=== PATIENT | female | born 1935 | race Caucasian/White ===

== ENCOUNTER 2021-01-06 23:47 | Inpatient (IN) ==
[2021-01-06] MEDS ORDERED: IOPAMIDOL 100 ML BOTTLE IV ONE (23:48)
[2021-01-07 01:46] LABS: ABG Methemoglobin 0.3 % (0.4-1.5); Total Hemoglobin 12.1 gm/Dl (13.5-16.5); VBG Base Excess 2 (-2-3); VBG HCO3 27.6 mmol/L; VBG Oxygen Saturation 76.6 %; VBG PCO2 46.7 mmHg; VBG PH 7.39 U; VBG PO2 46.1 mmHg; VBG Total CO2 29.1 mmol/L
[2021-01-07 01:49] LABS: Basophils # (Auto) 0.03 K/mcL (0.00-0.20); Basophils % (Auto) 0.3 % (0.0-2.0); Eosinophils # (Auto) 0.04 K/mcL (0.00-0.70); Eosinophils % (Auto) 0.4 % (0.0-7.0); Hemoglobin 12.1 g/dL (12.0-15.0); Lymphocytes % (Auto) 12.7 % (15.0-49.0); Mean Cell Volume 93.4 fL (80.0-100.0); Mean Corpuscular HGB Conc 32.7 g/dL (31.0-36.0); Mean Platelet Volume 9.7 fL (7.4-10.4); Monocytes # (Auto) 0.88 K/mcL (0.10-0.90); Monocytes % (Auto) 8.6 % (1.0-12.0); Platelet Count 221 K/mcL (140-440); RBC 3.96 M/mcL (4.00-5.20); Red Cell Distribution Width 13.1 % (11.5-14.5); WBC 10.3 K/mcL (4.5-11.0)
[2021-01-07 01:52] LABS: POC Blood Urea Nitrogen 18 mg/dL (6-20); POC CO2 27 mmol/L (22-30); POC Calcium, Ionized 1.01 mmEq/L (1.16-1.32); POC Chloride 98 mEq/L (96-108); POC Creatinine 1.1 mg/dL (0.6-1.2); POC Glucose, Random 204 mg/dL (70-105); POC Hematocrit 37 % (36-48); POC Potassium 3.7 mEql/L (3.3-5.1); POC Sodium 137 mEq/L (133-145)
[2021-01-07] MEDS ORDERED: IPRATROPIUM/ALBUTEROL 3 ML AMPUL.NEB NEB ONE (01:59)
[2021-01-07] MEDS ORDERED: cefTRIAXone 1 GM VIAL IV ONE (02:05)
[2021-01-07] MEDS ORDERED: AZITHROMYCIN 250 MG TABLET PO ONE (02:05)
[2021-01-07] MEDS ORDERED: ACETAMINOPHEN 325 MG TABLET PO ONE (02:05)
[2021-01-07 02:10] LABS: proBNP 171.5 pg/mL (<450.0)
--- NOTE | 2021-01-07 02:10 | Emergency Department Note ---
SOB HPI General Chief Complaint: Shortness of Breath/Dyspnea Stated Complaint: SOB Time Seen by Provider: 01/07/21 00:22 Source: patient, family and EMS Mode of arrival: EMS Limitations: no limitations History of Present Illness HPI Narrative: Narrative: Patient presents to the emergency department with complaints of shortness of breath, cough, fevers. Patient reports her cough is productive. Patient reports symptoms of cough and shortness of breath for the last 5 months, she had Covid at that time. Patient has been following with her primary care provider, she is working on getting oxygen at home. Patient's fever has been as high as 101. Patient was febrile on presentation to the emergency department. Patient is not a smoker. No personal history of pulmonary embolisms, patient does take Lasix. Patient currently denies any chest pain. Patient has not been on any antibiotics for the last month. Related Data Home Medications Medication Instructions Recorded Confirmed linagliptin 5 mg tablet 5 mg PO QAM 05/20/18 01/07/21 furosemide 20 mg tablet 20 mg PO QAM 03/01/20 01/07/21 levothyroxine 50 mcg capsule 50 mcg PO QDAY 03/01/20 01/07/21 pregabalin 150 mg capsule 150 mg PO BID 03/01/20 01/07/21 sertraline 50 mg tablet 200 mg PO DAILY tab 03/01/20 01/07/21 atorvastatin 40 mg PO QHS 01/07/21 01/07/21 glipizide 10 mg PO BID 01/07/21 01/07/21 Previous Rx's Medication Instructions Recorded nebulizers #1 each 04/20/16 albuterol sulfate 90 mcg/actuation 2 puff INHALATION Q6H PRN #8.5 g 06/03/18 aerosol inhaler mupirocin 1 applic TOPICAL BID #15 g 05/02/20 losartan 25 mg tablet 25 mg PO QDAY #90 tab 07/19/20 estradiol 0.5 mg tablet 0.25 mg PO .COMPLEX #12 tab 10/11/20 famotidine 20 mg tablet 20 mg PO QDAY #90 tab 10/26/20 oxybutynin chloride 5 mg tablet 5 mg PO BID #60 tab 12/28/20 Allergies Allergy/AdvReac Type Severity Reaction Status Date / Time Penicillins Allergy Severe Other Verified 01/07/21 00:00 Sulfa (Sulfonamide Allergy Mild Rash Verified 01/07/21 00:00 Antibiotics) hay Fever Allergy Unknown Unknown Uncoded 08/25/19 10:43 Review of Systems ROS ROS Narrative: Narrative: PFSH Narrative Patient History Narrative: Narrative: Medical/Surgical/Family History All Active Problems (Updated 01/07/21 @ 03:59 by Joseph Russo MD) Dyspnea (Acute) Acute bronchitis (Acute) Urinary frequency (Acute) Urinary incontinence (Acute) Sore on leg (Acute) Pneumonia (Acute) Acute respiratory failure with hypoxia (Acute) Acute bronchitis (Acute) Acute bronchitis (Acute) Skin yeast infection (Acute) CKD (chronic kidney disease), stage III (Chronic) Bronchitis (Acute) Adnexal mass (Acute) Retained tampon (Acute) Eruptive skin inflammation (Acute) Edema (Chronic) Hypertensive renal disease (Chronic) CKD (chronic kidney disease), stage III (Chronic) History of plastic surgery (Chronic) History of hysterectomy (Chronic) History of breast surgery (Chronic) Breast lump (Chronic) Depression (Chronic) Hemorrhoids (Chronic) Abdominal hernia (Chronic) Hyperlipidemia (Chronic) Measles (Chronic) Migraine (Chronic) Pneumonia (Chronic) Rectal bleeding (Chronic) Renal disease (Chronic) Thyroid disorder (Chronic) Varicose veins (Chronic) Arthritis (Chronic) Anemia (Chronic) Leg cramps (Chronic) Medical History (Updated 01/07/21 @ 03:59 by Joseph Russo MD) Abdominal hernia Acute bronchitis Anemia Arthritis Arthropod bite of abdominal wall Somewhat liner distribution w/o pus or signs of infection. 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 She is at low risk for progression of her renal disease as long as she avoids nonsteroidals Depression Edema Hemorrhoids Hyperlipidemia Hypertensive renal disease [place] urinalysis and absence of any nephrotoxic medications Leg cramps Measles Migraine Pneumonia Rectal bleeding Renal disease Thyroid disorder Varicose veins Surgical History History of breast surgery 2 lumps removed on breast History of hysterectomy History of plastic surgery brow lift Family History Unknown Family history of malignant neoplasm Family history of arthritis Cardiac disease Essential hypertension Kidney disorder Essential hypertension Parkinson's Disease Pulmonary tuberculosis Social History Smoking Status: Never smoker Alcohol Intake Frequency: does not drink Substance Use: does not use Exam Narrative Narrative: Narrative: General Limitations: no limitations General appearance: Present alert, in no apparent distress and nontoxic Head Head: Present atraumatic, normocephalic and normal inspection ENT ENT: Present normal exam Neck Neck: Present normal inspection Chest Chest: Present normal inspection Respiratory Respiratory: Present rales/crackles, wheezes and decreased breath sounds; Absent respiratory distress and stridor Cardiovascular Cardiovascular: Present regular rate, normal rhythm and normal heart sounds Adbominal Abdominal: Present soft and normal bowel sounds Extremities Extremities: Present normal inspection and full ROM Neurological Neurological: Present alert and oriented X3 Psychiatric Psychiatric: Present normal affect Skin Skin: Present warm (WNL) and dry; Absent rash Course Vital Signs Vital signs: Vital Signs Temperature 101.2 F H 01/06/21 23:47 Pulse Rate 82 01/06/21 23:47 Respiratory Rate 22 01/06/21 23:47 Blood Pressure 157/87 01/06/21 23:47 Pulse Oximetry (%) 90 01/06/21 23:47 Temperature 97.8 F 01/07/21 04:16 Pulse Rate 64 01/07/21 04:16 Respiratory Rate 20 01/07/21 02:15 Blood Pressure 108/73 01/07/21 04:46 Pulse Oximetry (%) 97 01/07/21 04:16 [facility] MDM Narrative Medical decision making narrative: Narrative: Patient presents to the emergency department with complaints of cough, fever, shortness of breath. Patient upon arrival was placed on 2 L nasal cannula for hypoxia, patient's temperature was 101.2. Patient has crackles mostly on the right and some scattered wheezes. Patient has been dealing with multiple bouts of pneumonia pulmonary issues for the last 5 months her son states since being diagnosed with Covid at that time. They have been working on arranging home oxygen. Chest x-ray was concerning for right infiltrates not seen on prior x-ray. CT scan was also obtained given patient's elevated D-dimer and persistent respiratory symptoms. CT scan showed no pulmonary embolism or mass. Did show atypical pneumonitis concerning for infectious process of the right middle lobe. patient was trialed off of oxygen and was saturating 85 to 90%. Patient was given ceftriaxone and azithromycin and nebulizer and Tylenol. Patient will be admitted for hypoxia and pneumonia. Lab Data Result diagrams: 01/07/21 01:31 Labs: Lab Results 01/07/21 01/07/21 01/07/21 Range/Units 01:31 01:31 01:31 WBC 10.3 (4.5-11.0) K/mcL RBC 3.96 L (4.00-5.20) M/mcL Hgb 12.1 (12.0-15.0) g/dL Hct 37.0 (36.0-48.0) % POC Hct (36-48) % MCV 93.4 (80.0-100.0) fL MCH 30.6 (26.0-34.0) pg MCHC 32.7 (31.0-36.0) g/dL RDW 13.1 (11.5-14.5) % Plt Count 221 (140-440) K/mcL MPV 9.7 (7.4-10.4) fL Neut % (Auto) 78.0 (38.0-78.0) % Lymph % (Auto) 12.7 L (15.0-49.0) % [place]ard % (Auto) 8.6 (1.0-12.0) % Eos % (Auto) 0.4 (0.0-7.0) % Baso % (Auto) 0.3 (0.0-2.0) % Lymph # (Auto) 1.30 L (1.50-4.80) K/mcL [place] # (Auto) 0.88 (0.10-0.90) K/mcL Eos # (Auto) 0.04 (0.00-0.70) K/mcL Baso # (Auto) 0.03 (0.00-0.20) K/mcL Absolute Neutrophils 8.01 H (1.80-8.00) K/mcL D-Dimer 2.38 H (0.27-0.50) ug/mL ABG Methemoglobin (0.4-1.5) % VBG pH U VBG pCO2 mmHg VBG pO2 mmHg VBG HCO3 mmol/L VBG Total CO2 mmol/L VBG O2 Saturation % VBG Base Excess (-2-3) Carboxyhemoglobin (0.0-1.5) % THgb Total Hemoglobin (13.5-16.5) gm/Dl POC Sodium (133-145) mEq/L POC Potassium (3.3-5.1) mEql/L POC Chloride (96-108) mEq/L POC Total CO2 (22-30) mmol/L POC BUN (6-20) mg/dL POC Creatinine (0.6-1.2) mg/dL POC Glucose (70-105) mg/dL POC WB Ioniz Calcium (1.16-1.32) mmEq/L Troponin T < 0.01 (<0.03) ng/mL NT-Pro-B Natriuret Pep (<450.0) pg/mL Procalcitonin (<0.10) ng/mL 01/07/21 01/07/21 01/07/21 Range/Units 01:31 01:31 01:44 WBC (4.5-11.0) K/mcL RBC (4.00-5.20) M/mcL Hgb (12.0-15.0) g/dL Hct (36.0-48.0) % POC Hct 37 (36-48) % MCV (80.0-100.0) fL MCH (26.0-34.0) pg MCHC (31.0-36.0) g/dL RDW (11.5-14.5) % Plt Count (140-440) K/mcL MPV (7.4-10.4) fL Neut % (Auto) (38.0-78.0) % Lymph % (Auto) (15.0-49.0) % Menard % (Auto) (1.0-12.0) % Eos % (Auto) (0.0-7.0) % Baso % (Auto) (0.0-2.0) % Lymph # (Auto) (1.50-4.80) K/mcL [place] # (Auto) (0.10-0.90) K/mcL Eos # (Auto) (0.00-0.70) K/mcL Baso # (Auto) (0.00-0.20) K/mcL Absolute Neutrophils (1.80-8.00) K/mcL D-Dimer (0.27-0.50) ug/mL ABG Methemoglobin 0.3 L (0.4-1.5) % VBG pH 7.39 U VBG pCO2 46.7 mmHg VBG pO2 46.1 mmHg VBG HCO3 27.6 mmol/L VBG Total CO2 29.1 mmol/L VBG O2 Saturation 76.6 % VBG Base Excess 2 (-2-3) Carboxyhemoglobin 6.1 H (0.0-1.5) % THgb Total Hemoglobin 12.1 L (13.5-16.5) gm/Dl POC Sodium 137 (133-145) mEq/L POC Potassium 3.7 (3.3-5.1) mEql/L POC Chloride 98 (96-108) mEq/L POC Total CO2 27 (22-30) mmol/L POC BUN 18 (6-20) mg/dL POC Creatinine 1.1 (0.6-1.2) mg/dL POC Glucose 204 H (70-105) mg/dL POC WB Ioniz Calcium 1.01 L (1.16-1.32) mmEq/L Troponin T (<0.03) ng/mL NT-Pro-B Natriuret Pep 171.5 (<450.0) pg/mL Procalcitonin 0.20 H (<0.10) ng/mL ED POC Tests ED POC Tests: NIURKA - SARS Antigen Negative EKG Data EKG #1: EKG attestation: Yes I reviewed and interpreted this EKG. and Yes There are no EKG findings of acute coronary syndrome EKG results narrative: Significant artifact. Discharge Plan Patient/Caregiver Discharge Instructions Pt seen by DANCE ARTIST/PA only: No Clinical Impression: Acute respiratory failure with hypoxia Pneumonia Qualifiers: Pneumonia type: due to unspecified organism Laterality: right Lung location: middle lobe of lung Qualified Code(s): J18.9 - Pneumonia, unspecified organism Patient Disposition: Xfer As Inpt ([facility]) Discharge Date/Time: 01/07/21 04:57 Discharge Location: [facility]
--- NOTE | 2021-01-07 04:06 | XRay Report ---
CLINICAL INFORMATION: dyspnea COMPARISON: 09/28/2020 FINDINGS: The heart is moderately enlarged, but unchanged. Mild thoracic aortic ectasia is seen as before. The remaining mediastinum and pulmonary vessels are unremarkable. Mild bibasilar atelectasis appreciated. Malunified old proximal left humeral fracture is seen as before IMPRESSION: Moderate cardiomegaly-stable. No evidence of CHF Subsegmental right basilar atelectasis-new Interpreted and Authenticated by: Kevin Spring 01/07/21
[2021-01-07] MEDS ORDERED: ACETAMINOPHEN 325 MG TABLET PO PRN (04:09)
[2021-01-07] MEDS ORDERED: IPRATROPIUM/ALBUTEROL 3 ML AMPUL.NEB NEB PRN (04:09)
--- NOTE | 2021-01-07 06:05 | Cat Scan Report ---
CLINICAL INFORMATION: Cough and shortness of breath. Covid +5 months prior COMPARISON: Chest CT 10/07/2012. TECHNIQUE: 80ml of Isovue-370 were injected intravenously. Using SmartPrep to maximize pulmonary artery opacification, .625mm helical slices were obtained from the lung apices through the lung bases. Following reconstruction, 2.5 mm sagittal, coronal, and axial reformations were processed. The exam was reviewed at mediastinal, lung, and bone windows. The exam was performed using radiation dose optimization techniques including, but not limited to, automated exposure control, adjustment of the mA and/or kV according to patient size and use of iterative reconstruction technique. FINDINGS: Moderate mixed groundglass/alveolar infiltrate in the right upper lobe and moderate consolidated infiltrate in the right lower lobe are new from prior exam. Segmental atelectasis of the medial basilar segment left lower lobe and inferior lingula are also new. There are no effusions. Mediastinal windows show moderate cardiomegaly with scattered calcific plaque in the coronary arteries. The pulmonary arteries are normal diameter and well-opacified: no evidence of embolus. Thoracic aorta is normal diameter and demonstrates intimal thickening particularly the descending segments. Moderately enlarged lymph nodes have developed in the right hilum, subcarinal and lower right paratracheal region. This should represent benign reactive adenopathy related to pulmonary infection. Severe narrowing of the mid and lower trachea, commencing at the thoracic inlet, has developed since previous CT. There is also severe narrowing of the proximal right and left main stem bronchi. Moderate narrowing of the bronchus intermedius, right middle and both lower lobe bronchi appreciated. This is likely inflammatory. Bone windows show no significant osseous abnormality. Superior abdominal images show a cluster of small stones in the gallbladder neck. 10 mm simple cyst seen in the superior left kidney. Visualized spleen pancreas and liver are grossly normal. IMPRESSION: Moderate mixed alveolar groundglass in the right upper lobe and moderate consolidated alveolar infiltrate in the right lower lobe. Consider aspiration or infection. Adenopathy in the right hilum and inferior mediastinum are new from prior CT and almost certainly represent lytic benign reactive adenopathy related to infection. Complete atelectasis of the inferior lingular and medial basilar segments of the left lower lobe-new and likely related mucus plugging. Severe narrowing of the mid and distal trachea-commencing at the thoracic inlet. There is also severe narrowing of both right and left mainstem bronchi. Moderate narrowing of both lower lobe bronchi, bronchus intermedius and right middle lobe bronchi. This is almost certainly inflammatory. The degree of narrowing results in ventilatory compromise. Patient may require intubation if clinically indicated. Cholelithiasis. 10 mm simple cyst superior pole left kidney Interpreted and Authenticated by: Kevin Spring 01/07/21
[2021-01-07 08:31] LABS: ALT/SGPT 18 U/L (<40); AST/SGOT 32 U/L (<32); Albumin 3.6 gm/dL (3.2-5.2); Albumin/Globulin Ratio 1.1 (1.0-2.3); Alkaline Phosphatase 57 U/L (39-117); Bilirubin,Direct 0.3 mg/dL (<0.3); Blood Urea Nitrogen 17 mg/dL (8-23); Calcium 8.4 mg/dL (8.6-10.4); Carbon Dioxide 27 mmol/L (22-30); Chloride 98 mmol/L (96-108); Globulin 3.4 gm/dL (2.2-3.7); Glomerular Filtration Rate 52; Glucose 128 mg/dL (70-105); Lactate Dehydrogenase 207 U/L (135-225); Phosphorous 3.6 mg/dL (2.5-4.5); Triglycerides 76 mg/dL (<150); Uric Acid 3.6 mg/dL (2.5-8.0)
[2021-01-07 08:58] LABS: Band Neutrophils % 2 % (0-10); Eosinophils % (Manual) 3 % (0-7); Lymphocytes % 28 % (15-49); Monocytes % (Manual) 6 % (1-12); Platelet Estimate NORMAL (Normal); RBC Morphology NORMAL (Normal); Segmented Neutrophils % 61 % (38-78)
[2021-01-07] MEDS ORDERED: SENNOSIDES 1 TABLET PO PRN (10:37)
[2021-01-07] MEDS ORDERED: DEXTROSE 50% 50 ML VIAL IV PRN (10:37)
[2021-01-07] MEDS ORDERED: DEXTROSE 31 GM ORAL.SUSP PO PRN (10:37)
[2021-01-07] MEDS ORDERED: POTASSIUM CHLORIDE 20 MEQ TABLET PO PRN ×2 (10:37)
[2021-01-07] MEDS ORDERED: POTASSIUM CHLORIDE 40 MEQ in DEXTROSE 5% IN WATER 500 ML IV PRN (10:37)
[2021-01-07] MEDS ORDERED: POLYETHYLENE GLYCOL 3350 17 GM PACKET PO PRN (10:37)
[2021-01-07] MEDS ORDERED: MAGNESIUM SULFATE 2 GM/50 ML BAG IV PRN (10:37)
[2021-01-07] MEDS ORDERED: ONDANSETRON 4 MG/2 ML VIAL IV PRN (10:37)
--- NOTE | 2021-01-07 10:37 | Internal Med History&Physical ---
HPI History of Present Illness Patient information: Note initiated : 01/07/21 at 10:26 am Service Date, if different from initiated Date: [] Patient: Cathy Timmons a 85 y/o F admitted on 01/07/21 for Shortness of breath. Chief Complaint: [] History of present illness: Ms. Timmons is a 85 year old F Patient is poor historian states her daughter had her come in because of coughing shortness of breath and some nausea vomiting last night. She has been dealing with this since she got Covid 5 months ago. She complains of fevers. She has been working on getting oxygen at home but has not had it yet. She is a non-smoker but has been exposed to secondhand smoke for a long time. She is on inhalers and admits to COPD but I do not see that on her home problem list. CTA of the chest was concerning for aspiration or infection. Also found to have complete atelectasis of the inferior lingula middle medial basilar segment left lower lobe and likely mucous plugging. Patient does admit to increased cough with food and drink. He was febrile on admit. Review of Systems: Pertinent positives as above. Denies headache/chest or abdominal pain/diarrhea. Many 10 point review of system reviewed negative PFSH PFSH All Active Problems (Updated 01/07/21 @ 03:59 by Joseph Russo MD) Dyspnea (Acute) Acute bronchitis (Acute) Urinary frequency (Acute) Urinary incontinence (Acute) Sore on leg (Acute) Pneumonia (Acute) Acute respiratory failure with hypoxia (Acute) Acute bronchitis (Acute) Acute bronchitis (Acute) Skin yeast infection (Acute) CKD (chronic kidney disease), stage III (Chronic) Bronchitis (Acute) Adnexal mass (Acute) Retained tampon (Acute) Eruptive skin inflammation (Acute) Edema (Chronic) Hypertensive renal disease (Chronic) CKD (chronic kidney disease), stage III (Chronic) History of plastic surgery (Chronic) History of hysterectomy (Chronic) History of breast surgery (Chronic) Breast lump (Chronic) Depression (Chronic) Hemorrhoids (Chronic) Abdominal hernia (Chronic) Hyperlipidemia (Chronic) Measles (Chronic) Migraine (Chronic) Pneumonia (Chronic) Rectal bleeding (Chronic) Renal disease (Chronic) Thyroid disorder (Chronic) Varicose veins (Chronic) Arthritis (Chronic) Anemia (Chronic) Leg cramps (Chronic) Medical History (Updated 01/07/21 @ 03:59 by Joseph Russo MD) Abdominal hernia Acute bronchitis Anemia Arthritis Arthropod bite of abdominal wall Somewhat liner distribution w/o pus or signs of infection. Excoriated and purtitic Hx of MRSA but this is not a skin abscess +/- MRSA Breast lump CKD (chronic kidney disease), stage III This patient has stable chronic kidney disease level 3 with a bland urinalysis and no proteinuria in the setting of previous nonsteroidal anti- inflammatory medication use and hypertension. She is at low risk for progression of her renal disease as long as she avoids nonsteroidals Depression Edema Hemorrhoids Hyperlipidemia Hypertensive renal disease [place] urinalysis and absence of any nephrotoxic medications Leg cramps Measles Migraine Pneumonia Rectal bleeding Renal disease Thyroid disorder Varicose veins Surgical History History of breast surgery 2 lumps removed on breast History of hysterectomy History of plastic surgery brow lift Family History Unknown Family history of malignant neoplasm Family history of arthritis Cardiac disease Essential hypertension Kidney disorder Essential hypertension Parkinson's Disease Pulmonary tuberculosis Social History (Updated 08/25/19 @ 12:45 by Grover Mendoza MD) other: 7 children alcohol intake frequency: does not drink substance use type: does not use MEDS/ALLERGIES Home Medications and Allergies Home Medications Medication Instructions Recorded Confirmed Type nebulizers #1 each 04/20/16 01/07/21 Rx linagliptin 5 mg tablet 5 mg PO QAM 05/20/18 01/07/21 History albuterol sulfate 90 mcg/actuation 2 puff INHALATION Q6H PRN #8.5 g 06/03/18 01/07/21 Rx aerosol inhaler furosemide 20 mg tablet 20 mg PO QAM 03/01/20 01/07/21 History levothyroxine 50 mcg capsule 50 mcg PO QDAY 03/01/20 01/07/21 History pregabalin 150 mg capsule 150 mg PO BID 03/01/20 01/07/21 History sertraline 50 mg tablet 200 mg PO DAILY tab 03/01/20 01/07/21 History mupirocin 1 applic TOPICAL BID #15 g 05/02/20 01/07/21 Rx losartan 25 mg tablet 25 mg PO QDAY #90 tab 07/19/20 01/07/21 Rx estradiol 0.5 mg tablet 0.25 mg PO .COMPLEX #12 tab 10/11/20 01/07/21 Rx famotidine 20 mg tablet 20 mg PO QDAY #90 tab 10/26/20 01/07/21 Rx oxybutynin chloride 5 mg tablet 5 mg PO BID #60 tab 12/28/20 01/07/21 Rx atorvastatin 40 mg PO QHS 01/07/21 01/07/21 History glipizide 10 mg PO BID 01/07/21 01/07/21 History Allergies Allergy/AdvReac Type Severity Reaction Status Date / Time Penicillins Allergy Severe Other Verified 01/07/21 00:00 Sulfa (Sulfonamide Allergy Mild Rash Verified 01/07/21 00:00 Antibiotics) hay Fever Allergy Unknown Unknown Uncoded 08/25/19 10:43 EXAM Constitutional Vitals: Temp Pulse Resp BP Pulse Ox 97.3 F 61 20 116/71 93 01/07/21 07:33 01/07/21 07:33 01/07/21 07:33 01/07/21 07:33 01/07/21 07:33 Exam: General: Alert, Awake, No acute Distress, obese Eyes/N/T: EOMI, PERRL, Head/Neck: neck supple, normocephalic atraumatic CV: RRR, No murmurs, normal s1/s2 Pulm: Rhonchi/wheezing b/l, Abd: soft, nontender, +BS x4 Ext: no clubbing/cyanosis, trace b/l LE edema Neuro: Alert, no focal deficits, moves all extremities, CN 2-12 grossly intact, symmetrical strength b/l upper/lower, sensations intact b/l upper/lower Skin: warm/dry DATA Data Completed and Pending Labs: Labs from last 24 hours 01/07/21 01/07/21 01/07/21 07:28 07:28 07:28 WBC RBC Hgb Hct POC Hct MCV MCH MCHC RDW Plt Count MPV Neut % (Auto) Lymph % (Auto) [place] % (Auto) Eos % (Auto) Baso % (Auto) Lymph # (Auto) [place] # (Auto) Eos # (Auto) Baso # (Auto) Seg Neutrophils % Band Neutrophils % Lymphocytes % Monocytes % (Manual) Eosinophils % (Manual) Absolute Neutrophils Platelet Estimate RBC Morphology D-Dimer ABG Methemoglobin VBG pH VBG pCO2 VBG pO2 VBG HCO3 VBG Total CO2 VBG O2 Saturation VBG Base Excess Carboxyhemoglobin Total Hemoglobin POC Sodium Sodium 135 POC Potassium Potassium 3.6 POC Chloride Chloride 98 Carbon Dioxide 27 POC Total CO2 Anion Gap 10.0 POC BUN BUN 17 Creatinine 1.0 POC Creatinine GFR Calculation 52 Glucose 128 H POC Glucose Uric Acid 3.6 Calcium 8.4 L POC WB Ioniz Calcium Phosphorus 3.6 Magnesium 2.2 Total Bilirubin 1.0 Direct Bilirubin 0.3 H GGT 28 AST 32 H ALT 18 Alkaline Phosphatase 57 Lactate Dehydrogenase 207 Troponin T NT-Pro-B Natriuret Pep Total Protein 7.0 Albumin 3.6 Globulin 3.4 Albumin/Globulin Ratio 1.1 Triglycerides 76 Procalcitonin 0.23 H Mycoplasma pneumon IgG Pending Mycoplasma pneumon IgM Pending 01/07/21 01/07/21 01/07/21 07:28 01:44 01:31 WBC RBC Hgb Hct POC Hct MCV MCH MCHC RDW Plt Count MPV Neut % (Auto) Lymph % (Auto) [place] % (Auto) Eos % (Auto) Baso % (Auto) Lymph # (Auto) [place] # (Auto) Eos # (Auto) Baso # (Auto) Seg Neutrophils % 61 Band Neutrophils % 2 Lymphocytes % 28 Monocytes % (Manual) 6 Eosinophils % (Manual) 3 Absolute Neutrophils Platelet Estimate Normal RBC Morphology Normal D-Dimer ABG Methemoglobin 0.3 L VBG pH 7.39 VBG pCO2 46.7 VBG pO2 46.1 VBG HCO3 27.6 VBG Total CO2 29.1 VBG O2 Saturation 76.6 VBG Base Excess 2 Carboxyhemoglobin 6.1 H Total Hemoglobin 12.1 L POC Sodium Sodium POC Potassium Potassium POC Chloride Chloride Carbon Dioxide POC Total CO2 Anion Gap POC BUN BUN Creatinine POC Creatinine GFR Calculation Glucose POC Glucose Uric Acid Calcium POC WB Ioniz Calcium Phosphorus Magnesium Total Bilirubin Direct Bilirubin GGT AST ALT Alkaline Phosphatase Lactate Dehydrogenase Troponin T NT-Pro-B Natriuret Pep Total Protein Albumin Globulin Albumin/Globulin Ratio Triglycerides Procalcitonin 0.20 H Mycoplasma pneumon IgG Mycoplasma pneumon IgM 01/07/21 01/07/21 01/07/21 01:31 01:31 01:31 WBC RBC Hgb Hct POC Hct 37 MCV MCH MCHC RDW Plt Count MPV Neut % (Auto) Lymph % (Auto) [place] % (Auto) Eos % (Auto) Baso % (Auto) Lymph # (Auto) [place] # (Auto) Eos # (Auto) Baso # (Auto) Seg Neutrophils % Band Neutrophils % Lymphocytes % Monocytes % (Manual) Eosinophils % (Manual) Absolute Neutrophils Platelet Estimate RBC Morphology D-Dimer 2.38 H ABG Methemoglobin VBG pH VBG pCO2 VBG pO2 VBG HCO3 VBG Total CO2 VBG O2 Saturation VBG Base Excess Carboxyhemoglobin Total Hemoglobin POC Sodium 137 Sodium POC Potassium 3.7 Potassium POC Chloride 98 Chloride Carbon Dioxide POC Total CO2 27 Anion Gap POC BUN 18 BUN Creatinine POC Creatinine 1.1 GFR Calculation Glucose POC Glucose 204 H Uric Acid Calcium POC WB Ioniz Calcium 1.01 L Phosphorus Magnesium Total Bilirubin Direct Bilirubin GGT AST ALT Alkaline Phosphatase Lactate Dehydrogenase Troponin T < 0.01 NT-Pro-B Natriuret Pep 171.5 Total Protein Albumin Globulin Albumin/Globulin Ratio Triglycerides Procalcitonin Mycoplasma pneumon IgG Mycoplasma pneumon IgM 01/07/21 01:31 WBC 10.3 RBC 3.96 L Hgb 12.1 Hct 37.0 POC Hct MCV 93.4 MCH 30.6 MCHC 32.7 RDW 13.1 Plt Count 221 MPV 9.7 Neut % (Auto) 78.0 Lymph % (Auto) 12.7 L [place] % (Auto) 8.6 Eos % (Auto) 0.4 Baso % (Auto) 0.3 Lymph # (Auto) 1.30 L [place] # (Auto) 0.88 Eos # (Auto) 0.04 Baso # (Auto) 0.03 Seg Neutrophils % Band Neutrophils % Lymphocytes % Monocytes % (Manual) Eosinophils % (Manual) Absolute Neutrophils 8.01 H Platelet Estimate RBC Morphology D-Dimer ABG Methemoglobin VBG pH VBG pCO2 VBG pO2 VBG HCO3 VBG Total CO2 VBG O2 Saturation VBG Base Excess Carboxyhemoglobin Total Hemoglobin POC Sodium Sodium POC Potassium Potassium POC Chloride Chloride Carbon Dioxide POC Total CO2 Anion Gap POC BUN BUN Creatinine POC Creatinine GFR Calculation Glucose POC Glucose Uric Acid Calcium POC WB Ioniz Calcium Phosphorus Magnesium Total Bilirubin Direct Bilirubin GGT AST ALT Alkaline Phosphatase Lactate Dehydrogenase Troponin T NT-Pro-B Natriuret Pep Total Protein Albumin Globulin Albumin/Globulin Ratio Triglycerides Procalcitonin Mycoplasma pneumon IgG Mycoplasma pneumon IgM A/P Narrative A/P Narrative: A: *Pneumonia: Atypical bacterial versus aspiration -had covid earlier in the year *Atelectasis/Mucous plugging: *Acute hypoxic respiratory failure: 2/2 above -on 2L NC *?COPD(not on home O2 but in process of obtaining): *DM: *CKD III: Follows Dr. Mendoza *HTN/HLD: *Depression/anxiety: *Hypothyroidism: *GERD: *Obesity: P: -Abx, pending SC -rvp/myco/strep pending -ST eval -IS/Acapella/CPT per RT/nebs -RT to assess for home O2 upond d/c -cont ARB/lasix - -pt/ot -ppx: lovenox/home h2 Time Spent With Patient Time: Total time spent is greater than 50% in coordination of care (as documented) at patient's floor/unit and/or counseling patient: QUALITY VTE Deep Vein Thrombosis/Pulmonary Embolism Present on Admission: No
[2021-01-07 11:27] LABS: Appearance,Urine HAZY (Clear); Bacteria,Urine FEW /hpf (0); Bilirubin,Urine Negative (Negative); Color,Urine YELLOW; Culture Indicated,Urine No; Glucose,Urine (UA) Negative (Negative); Ketones,Urine Negative (Negative); Leukocyte Esterase,Urine 75 /ug (Negative); Mucus,Urine MANY /hpf; Nitrate,Urine Negative (Negative); Protein,Urine Negative (Negative); Specific Gravity,Urine > 1.060 (1.000-1.035); Urine Blood Negative (Negative); Urine RBC < 1 /hpf (0-3); Urine Squamous Epithelial Cell 5 /hpf (0-4); Urine WBC 11 /hpf (0-4); Urobilinogen,Urine Negative
[2021-01-07] MEDS: ENOXAPARIN 40 MG/0.4 ML SYRINGE SQ SCH (11:35)
[2021-01-07] MEDS: INSULIN LISPRO 1 UNIT/0.01 ML UNIT SQ SCH ×3 (11:36→21:53)
[2021-01-07] MEDS: cefTRIAXone 2 GM in DEXTROSE 5% IN WATER 50 ML IV SCH (13:10)
[2021-01-07] MEDS: 0.9 % SODIUM CHLORIDE 10 ML SYRINGE IV SCH ×2 (13:11→21:53)
[2021-01-07] MEDS: IPRATROPIUM/ALBUTEROL 3 ML AMPUL.NEB NEB SCH ×2 (13:27→19:11)
[2021-01-07] MEDS: AZITHROMYCIN 500 MG in DEXTROSE 5% IN WATER 250 ML IV SCH (16:30)
[2021-01-07] MEDS: glipiZIDE 5 MG TABLET PO SCH (16:31)
[2021-01-07] MEDS: OXYBUTYNIN CHLORIDE 5 MG TABLET PO SCH (21:52)
[2021-01-07] MEDS: MUPIROCIN OINT 2% 22GM TOPICAL SCH (21:52)
[2021-01-07] MEDS: PREGABALIN 150 MG CAPSULE PO SCH (21:52)
[2021-01-07] MEDS: DOCUSATE SODIUM 100 MG CAPSULE PO SCH (21:52)
[2021-01-07] MEDS: ATORVASTATIN 40 MG TABLET PO SCH (21:53)
--- NOTE | 2021-01-07 22:08 | EKG ---
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 Measurements Intervals [place] Rate: 77 P: 42 CA: 216 QRS: -55 QRSD: 106 T: 32 QT: 440 QTc: 499 Interpretive Statements SINUS RHYTHM ATRIAL PREMATURE COMPLEX LEFT ANTERIOR FASCICULAR BLOCK PROBABLE LEFT VENTRICULAR HYPERTROPHY BORDERLINE PROLONGED QT INTERVAL NO PRIOR TRACING FOR COMPARISON ABNORMAL ECG Electronically Signed On 01-07-2021 22:08:19 PDT by Gurinder Camarena M.D. /store/M0/[id number]
[2021-01-08] MEDS: IPRATROPIUM/ALBUTEROL 3 ML AMPUL.NEB NEB SCH ×4 (00:35→18:47)
[2021-01-08] MEDS: 0.9 % SODIUM CHLORIDE 10 ML SYRINGE IV SCH ×3 (05:17→22:16)
--- NOTE | 2021-01-08 07:15 | Internal Med Progress Note ---
SUBJECTIVE Subjective Patient information: Note initiated : 01/08/21 at 7:11 am Service Date, if different from initiated Date: [] Patient: Cathy Timmons 85 y/o F admitted on 01/07/21 for Shortness of breath. Chief Complaint: [] Interval history: History of present illness: Ms. Timmons is a 85 year old F Patient is poor historian states her daughter had her come in because of coughing shortness of breath and some nausea vomiting last night. She has been dealing with this since she got Covid 5 months ago. She complains of fevers. She has been working on getting oxygen at home but has not had it yet. She is a non-smoker but has been exposed to secondhand smoke for a long time. She is on inhalers and admits to COPD but I do not see that on her home problem list. CTA of the chest was concerning for aspiration or infection. Also found to have complete atelectasis of the inferior lingula middle medial basilar segment left lower lobe and likely mucous plugging. Patient does admit to increased cough with food and drink. He was febrile on admit. 01/08 Afebrile overnight. On 2 L nasal cannula. CPT by RT. strep urine antigen positive. Procalcitonin improving. Seems to be feeling a little better overall. Occasional cough mild. Denies shortness of breath at rest. Review of Systems: denies headache/fever/chills/nausea/vomiting/chest or abdominal pain/diarrhea. Otherwise see above. Constitutional Vitals: Vital Signs Temp Pulse Resp BP Pulse Ox 98.3 F 74 18 113/72 89 L 01/08/21 04:00 01/08/21 04:00 01/08/21 04:00 01/08/21 04:00 01/08/21 04:00 Period Temp Pulse Resp BP Sys/Delgado Pulse Ox Last 24 Hr 97.2 F-98.8 F 61-94 18-22 100-125/54-83 89-97 Intake and Output 01/07/21 01/08/21 01/08/21 21:59 05:59 13:59 Intake Total 300 800 Output Total 250 300 Balance 50 500 Weight 109.27 kg Intake & Output: Intake & Output 01/07/21 01/08/21 01/08/21 21:59 05:59 13:59 Intake Total 300 800 Output Total 250 300 Balance 50 500 Weight 109.27 kg Intake: IV 300 Zithromax 500 mg In Dextrose 5% 250 in Water 250 ml @ 250 mls/hr IV DAILY [facility] Rx#:[id number] Rocephin 2 gm In Dextrose 5% in 50 Water 50 ml @ 100 mls/hr IV DAILY [facility] Rx#:[id number] Oral 0 800 Output: Void Amount 250 300 Other: Meal Nourishment/Supplement Percent of Meal Consumed 100% Feeding Ability Independent Urine Color Bright Yellow Urine Odor Normal # Voids 3 Exam: General: Alert, Awake, No acute Distress, obese Eyes/N/T: EOMI, Head/Neck: neck supple, CV: RRR, No murmurs, Pulm: Rhonchi b/l, no wheezing Abd: soft, nontender, +BS x4 Ext: no clubbing/cyanosis, trace b/l LE edema Neuro: Alert, no focal deficits, moves all extremities, Skin: warm/dry OBJ DATA Labs CBC & Chem 7: 01/08/21 06:11 01/08/21 06:11 Labs: Abnormal Lab Results 01/07/21 01/07/21 01/07/21 10:00 10:00 07:28 RBC Lymph % (Auto) Lymph # (Auto) Absolute Neutrophils D-Dimer ABG Methemoglobin Carboxyhemoglobin Total Hemoglobin Glucose POC Glucose Calcium POC WB Ioniz Calcium Direct Bilirubin AST Procalcitonin 0.23 H Urine Appearance Hazy A Ur Leukocyte Esterase 75 A Urine WBC 11 H Ur Squamous Epith Cells 5 H Urine Bacteria Few A Urine Mucus Many A Ur Strep pneumoniae Ag Positive A 01/07/21 01/07/21 01/07/21 07:28 01:44 01:31 RBC Lymph % (Auto) Lymph # (Auto) Absolute Neutrophils D-Dimer ABG Methemoglobin 0.3 L Carboxyhemoglobin 6.1 H Total Hemoglobin 12.1 L Glucose 128 H POC Glucose Calcium 8.4 L POC WB Ioniz Calcium Direct Bilirubin 0.3 H AST 32 H Procalcitonin 0.20 H Urine Appearance Ur Leukocyte Esterase Urine WBC Ur Squamous Epith Cells Urine Bacteria Urine Mucus Ur Strep pneumoniae Ag 01/07/21 01/07/21 01/07/21 01:31 01:31 01:31 RBC 3.96 L Lymph % (Auto) 12.7 L Lymph # (Auto) 1.30 L Absolute Neutrophils 8.01 H D-Dimer 2.38 H ABG Methemoglobin Carboxyhemoglobin Total Hemoglobin Glucose POC Glucose 204 H Calcium POC WB Ioniz Calcium 1.01 L Direct Bilirubin AST Procalcitonin Urine Appearance Ur Leukocyte Esterase Urine WBC Ur Squamous Epith Cells Urine Bacteria Urine Mucus Ur Strep pneumoniae Ag Meds: Medications Acetaminophen (Acetaminophen 325 Mg Tablet) 650 mg PO Q6HP PRN; Protocol PRN Reason: Per Pain Protocol/Fever > 101 Albuterol/Ipratropium (Ipratropium/Albuterol 3 Ml Ampul.Neb) 3 ml NEB Q4HP PRN PRN Reason: Shortness Of Breath Albuterol/Ipratropium (Ipratropium/Albuterol 3 Ml Ampul.Neb) 3 ml NEB Q6HRT [facility] Last Admin: 01/08/21 00:35 Dose: 3 ml Documented by: Atorvastatin Calcium (Atorvastatin 40 Mg Tablet) 40 mg PO QHS [facility] Last Admin: 01/07/21 21:53 Dose: 40 mg Documented by: Dextrose (Dextrose 50% 50 Ml Vial) 0 ml IV UD PRN PRN Reason: Hypoglycemia Diagnostic Test (Pha) (Accu-Chek 1 Each Strip) 1 each FS ACHS [facility] Last Admin: 01/07/21 21:51 Dose: 1 each Documented by: Docusate Sodium (Docusate Sodium 100 Mg Capsule) 100 mg PO BID [facility] Last Admin: 01/07/21 21:52 Dose: 100 mg Documented by: Enoxaparin Sodium (Enoxaparin 40 Mg/0.4 Ml Syringe) 40 mg SQ DAILY [facility] Last Admin: 01/07/21 11:35 Dose: 40 mg Documented by: Famotidine (Famotidine 20 Mg Tablet) 20 mg PO QDAY [facility] Furosemide (Furosemide 20 Mg Tablet) 20 mg PO QAM [facility] Glipizide (Glipizide 5 Mg Tablet) 10 mg PO BIDAC [facility] Last Admin: 01/07/21 16:31 Dose: 10 mg Documented by: Glucose (Dextrose 31 Gm Oral.Susp) 15 gm PO PRN PRN PRN Reason: Hypoglycemia Potassium Chloride 40 meq/ (Dextrose) 520 mls @ 130 mls/hr IV UD PRN PRN Reason: Potassium < 3 Magnesium Sulfate (Magnesium Sulfate) 2 gm in 50 mls @ 50 mls/hr IV UD PRN PRN Reason: Magnesium </= 1.6 Ceftriaxone Sodium 2 gm/ (Dextrose) 50 mls @ 100 mls/hr IV DAILY [facility]; Protocol Last Infusion: 01/07/21 14:00 Dose: Infused Documented by: Azithromycin 500 mg/ Dextrose 250 mls @ 250 mls/hr IV DAILY [facility]; Protocol Stop: 01/08/21 09:59 Last Infusion: 01/07/21 17:49 Dose: Infused Documented by: Insulin Human Lispro (Insulin Lispro 1 Unit/0.01 Ml Unit) 0 unit SQ ACHS [facility]; Protocol Last Admin: 01/07/21 21:53 Dose: Not Given Documented by: Levothyroxine Sodium (Levothyroxine 50 Mcg Tablet) 50 mcg PO QAMAC [facility] Losartan Potassium (Losartan 25 Mg Tablet) 25 mg PO QDAY [facility] Mupirocin (Mupirocin Oint 2% 22gm) 1 dose TOPICAL BID [facility] Last Admin: 01/07/21 21:52 Dose: Not Given Documented by: Ondansetron HCl (Ondansetron 4 Mg/2 Ml Vial) 4 mg IV Q4HP PRN PRN Reason: Nausea And Vomiting Oxybutynin Chloride (Oxybutynin Chloride 5 Mg Tablet) 5 mg PO BID [facility] Last Admin: 01/07/21 21:52 Dose: 5 mg Documented by: Linagliptin [ Tradjenta] 5 Mg Tablet 1 dose PO DAILY [facility] Polyethylene Glycol (Polyethylene Glycol 3350 17 Gm Packet) 17 gm PO DAILYP PRN PRN Reason: Constipation Potassium Chloride (Potassium Chloride 20 Meq Tablet) 40 meq PO UD PRN PRN Reason: Potssium is 3-3.5 Potassium Chloride (Potassium Chloride 20 Meq Tablet) 40 meq PO UD PRN PRN Reason: Potassium < 3 Pregabalin (Pregabalin 150 Mg Capsule) 150 mg PO BID [facility] Last Admin: 01/07/21 21:52 Dose: 150 mg Documented by: Senna (Sennosides 1 Tablet) 2 tab PO DAILYP PRN PRN Reason: Constipation Sertraline HCl (Sertraline 50 Mg Tablet) 200 mg PO DAILY [facility] Sodium Chloride (0.9 % Sodium Chloride 10 Ml Syringe) 10 ml IV Q8 [facility] Last Admin: 01/08/21 05:17 Dose: 10 ml Documented by: ABG Interpretation ABG results: 01/07/21 01:31 ABG Methemoglobin 0.3 L VBG pH 7.39 VBG pCO2 46.7 VBG pO2 46.1 VBG HCO3 27.6 VBG Total CO2 29.1 VBG O2 Saturation 76.6 VBG Base Excess 2 A/P Narrative A/P Narrative: A: *Strep Pneumonia, possible aspiration component: -had covid earlier in the year, rvp neg *Atelectasis/Mucous plugging: *Acute hypoxic respiratory failure: 2/2 above -on 2L NC *?COPD(not on home O2 but in process of obtaining): *DM: *CKD III: Follows Dr. Mendoza *HTN/HLD: *Depression/anxiety: *Hypothyroidism: *GERD: *Obesity: P: -Abx -ST eval, dysphagia diet until seen -IS/Acapella/CPT per RT/nebs -RT to assess for home O2 upon d/c -cont ARB/lasix -f/u with pulm -pt/ot -ppx: lovenox/home h2 Time Spent With Patient Time: Total time spent is greater than 50% in coordination of care (as documented) at patient's floor/unit and/or counseling patient: QUALITY VTE Deep Vein Thrombosis/Pulmonary Embolism Present on Admission: No
[2021-01-08 07:45] LABS: ALT/SGPT 23 U/L (<40); AST/SGOT 43 U/L (<32); Albumin 3.4 gm/dL (3.2-5.2); Alkaline Phosphatase 63 U/L (39-117); Bilirubin,Direct < 0.2 mg/dL (0-0.3); Bilirubin,Total 0.5 mg/dL (0.1-1.0); Blood Urea Nitrogen 20 mg/dL (8-23); Calcium 8.7 mg/dL (8.6-10.4); Carbon Dioxide 24 mmol/L (22-30); Chloride 99 mmol/L (96-108); Globulin 3.3 gm/dL (2.2-3.7); Glomerular Filtration Rate 41; Glucose 68 mg/dL (70-105); Lactate Dehydrogenase 248 U/L (135-225); Phosphorous 3.6 mg/dL (2.5-4.5); Triglycerides 86 mg/dL (<150); Uric Acid 4.2 mg/dL (2.5-8.0)
[2021-01-08] MEDS: SERTRALINE 50 MG TABLET PO SCH (08:21)
[2021-01-08] MEDS: ENOXAPARIN 40 MG/0.4 ML SYRINGE SQ SCH (08:21)
[2021-01-08] MEDS: FUROSEMIDE 20 MG TABLET PO SCH (08:21)
[2021-01-08] MEDS: DOCUSATE SODIUM 100 MG CAPSULE PO SCH ×2 (08:21→22:16)
[2021-01-08] MEDS: cefTRIAXone 2 GM in DEXTROSE 5% IN WATER 50 ML IV SCH (08:21)
[2021-01-08] MEDS: MUPIROCIN OINT 2% 22GM TOPICAL SCH ×2 (08:21→22:16)
[2021-01-08] MEDS: PREGABALIN 150 MG CAPSULE PO SCH ×2 (08:22→22:16)
[2021-01-08] MEDS: LOSARTAN 25 MG TABLET PO SCH (08:22)
[2021-01-08] MEDS: OXYBUTYNIN CHLORIDE 5 MG TABLET PO SCH ×2 (08:22→22:16)
[2021-01-08] MEDS: FAMOTIDINE 20 MG TABLET PO SCH (08:22)
[2021-01-08] MEDS: glipiZIDE 5 MG TABLET PO SCH ×2 (08:23→16:45)
[2021-01-08] MEDS: LEVOTHYROXINE 50 MCG TABLET PO SCH (08:23)
[2021-01-08] MEDS: Linagliptin [Tradjenta] 5 MG Tablet PO SCH (08:24)
[2021-01-08] MEDS: INSULIN LISPRO 1 UNIT/0.01 ML UNIT SQ SCH ×4 (08:24→22:21)
[2021-01-08] MEDS: AZITHROMYCIN 500 MG in DEXTROSE 5% IN WATER 250 ML IV SCH (08:35)
[2021-01-08] MEDS ORDERED: VANCOMYCIN PER PHARMACY IV SCH (11:19)
--- NOTE | 2021-01-08 12:01 | Discharge Summary ---
Discharge Provider Provider Patient information: Note initiated : 01/08/21 at 11:59 am Service Date, if different from initiated Date: [] Patient: Cathy Timmons 85 y/o F admitted on 01/07/21 for Shortness of breath. Chief Complaint: [] Date of admission: 01/07/21 04:57 Discharge date: 01/09/21 Primary care physician: Poppy Mast Consults: 01/07/21 Consult to Physician [CONS] Stat Comment: Consulting Provider: Tonny Rapp Reason For Exam: Physician to Consult Consult to Physician [CONS] Stat Comment: Consulting Provider: Tonny Rapp Reason For Exam: Physician to Consult Discharge Meds Discharge Medications Home Medications nebulizers #1 each 04/20/16 [Rx Confirmed 01/07/21 Last Taken Unknown] linagliptin 5 mg tablet 5 mg PO QAM 05/20/18 [History Confirmed 01/07/21 Last Taken 01/06/21] albuterol sulfate 90 mcg/actuation aerosol inhaler 2 puff INHALATION Q6H PRN #8.5 g 06/03/18 [Rx Confirmed 01/07/21 Last Taken Unknown] furosemide 20 mg tablet 20 mg PO QAM 03/01/20 [History Confirmed 01/07/21 Last Taken 01/06/21] levothyroxine 50 mcg capsule 50 mcg PO QDAY 03/01/20 [History Confirmed 01/07/21 Last Taken 01/06/21] pregabalin 150 mg capsule 150 mg PO BID 03/01/20 [History Confirmed 01/07/21 Last Taken 01/06/21] sertraline 50 mg tablet 200 mg PO DAILY tab 03/01/20 [History Confirmed 01/07/21 Last Taken 01/06/21] mupirocin 1 applic TOPICAL BID #15 g 05/02/20 [Rx Confirmed 01/07/21 Last Taken Unknown] losartan 25 mg tablet 25 mg PO QDAY #90 tab 07/19/20 [Rx Confirmed 01/07/21 Last Taken 01/06/21] estradiol 0.5 mg tablet 0.25 mg PO .COMPLEX #12 tab 10/11/20 [Rx Confirmed 01/07/21 Last Taken 01/06/21] famotidine 20 mg tablet 20 mg PO QDAY #90 tab 10/26/20 [Rx Confirmed 01/07/21 Last Taken 01/06/21] oxybutynin chloride 5 mg tablet 5 mg PO BID #60 tab 12/28/20 [Rx Confirmed 01/07/21 Last Taken 01/06/21] atorvastatin 40 mg PO QHS 01/07/21 [History Confirmed 01/07/21 Last Taken Unknown] glipizide 10 mg PO BID 01/07/21 [History Confirmed 01/07/21 Last Taken 01/06/21] cefpodoxime 200 mg PO BID #8 tab 01/08/21 [Rx Last Taken Unknown] COURSE Hospital Course Hospital course: Interval history: History of present illness: Ms. Timmons is a 85 year old F Patient is poor historian states her daughter had her come in because of coughing shortness of breath and some nausea vomiting last night. She has been dealing with this since she got Covid 5 months ago. She complains of fevers. She has been working on getting oxygen at home but has not had it yet. She is a non-smoker but has been exposed to secondhand smoke for a long time. She is on inhalers and admits to COPD but I do not see that on her home problem list. CTA of the chest was concerning for aspiration or infection. Also found to have complete atelectasis of the inferior lingula middle medial basilar segment left lower lobe and likely mucous plugging. Patient does admit to increased cough with food and drink. He was febrile on admit. 01/08 Afebrile overnight. On 2 L nasal cannula. CPT by RT. strep urine antigen positive. Procalcitonin improving. Seems to be feeling a little better overall. Occasional cough mild. Denies shortness of breath at rest. 01/09 Saturations on room air 90-91. RT will assess her for home oxygen, she will go home with son. A/P Narrative: A: *Strep Pneumonia, possible aspiration component: -had covid earlier in the year, rvp neg *Atelectasis/Mucous plugging: *Acute hypoxic respiratory failure: 2/2 above *COPD(not on home O2 but in process of obtaining): *DM: *CKD III: Follows Dr. Mendoza *HTN/HLD: *Depression/anxiety: *Hypothyroidism: *GERD: *Obesity: Discharge diagnosis: Streptococcal pneumonia atelectasis mucous plugging hypoxic respiratory edinson Secondary discharge diagnosis: COPD diabetes chronic kidney disease hypertension depression anxiety hypothyroidism GERD obesity Time Spent with Patient Time attestation: Total time spent providing and/or coordinating discharge services: Time spent: Greater than 30 minutes EXAM Constitutional Vitals: Temp Pulse Resp BP Pulse Ox 97.2 F 71 20 120/71 90 01/08/21 11:13 01/08/21 11:13 01/08/21 11:13 01/08/21 11:13 01/08/21 11:13 Discharge Data Data Completed and Pending Labs on day of discharge: Labs from last 24 hours 01/08/21 01/08/21 01/08/21 06:11 06:11 06:11 WBC TNP RBC TNP Hgb TNP Hct TNP MCV TNP MCH TNP MCHC TNP RDW TNP Plt Count TNP MPV TNP Neut % (Auto) TNP Lymph % (Auto) TNP [place] % (Auto) TNP Eos % (Auto) TNP Baso % (Auto) TNP Lymph # (Auto) TNP [place] # (Auto) TNP Eos # (Auto) TNP Baso # (Auto) TNP Absolute Neutrophils TNP Differential Comment TNP Sodium 135 Potassium 3.8 Chloride 99 Carbon Dioxide 24 Anion Gap 12.0 BUN 20 Creatinine 1.2 H GFR Calculation 41 Glucose 68 L Uric Acid 4.2 Calcium 8.7 Phosphorus 3.6 Magnesium 2.0 Total Bilirubin 0.5 Direct Bilirubin < 0.2 GGT 27 AST 43 H ALT 23 Alkaline Phosphatase 63 Lactate Dehydrogenase 248 H Total Protein 6.7 Albumin 3.4 Globulin 3.3 Albumin/Globulin Ratio 1.0 Triglycerides 86 Procalcitonin 0.17 H Preliminary micro results at discharge 01/07/21 11:55 Gram Stain - Preliminary Sputum source - Expectorated Sputum Culture - Preliminary Staphylococcus aureus Discharge Plan Patient/Caregiver Discharge Instructions Activity: increase activity as tolerated Diet: Consistent Carbohydrate Activity Restrictions/Additional Instructions: Referral to see pulmonology for COPD/hypoxia evaluation 1-2 weeks Patient require home oxygen for her COPD Prescriptions: New cefpodoxime 200 mg tablet 200 mg PO BID Qty: 8 RF: 0 Continued pregabalin [Lyrica] 150 mg capsule 150 mg PO BID RF: 0 sertraline 50 mg tablet 200 mg PO DAILY RF: 0 levothyroxine 50 mcg capsule 50 mcg PO QDAY RF: 0 furosemide 20 mg tablet 20 mg PO QAM RF: 0 losartan 25 mg tablet 25 mg PO QDAY Qty: 90 RF: 3 estradiol 0.5 mg tablet 0.25 mg PO .COMPLEX Qty: 12 RF: 3 famotidine 20 mg tablet 20 mg PO QDAY Qty: 90 RF: 3 oxybutynin chloride 5 mg tablet 5 mg PO BID Qty: 60 RF: 11 linagliptin [Tradjenta] 5 mg tablet 5 mg PO QAM RF: 0 albuterol sulfate [ProAir HFA] 90 mcg/actuation HFA aerosol inhaler 2 puff INHALATION Q6H PRN (Reason: cough, shortness of breath, wheezing) Qty: 8.5 RF: 0 (DME) nebulizers 1 EACH misc 1 each MC Q4 Qty: 1 RF: 0 mupirocin 2 % ointment 1 applic TOPICAL BID Qty: 15 RF: 0 glipizide 10 mg Tablet 10 mg PO BID RF: 0 atorvastatin 40 mg Tablet 40 mg PO QHS RF: 0 Follow Up Plan Follow up with: Poppy Mast PA-C [Primary Care Provider] - Patient Disposition: Home Health Service Prognosis: Fair Overall status at discharge: patient is progressing back to baseline Discharge Orders: Discharge Order (Routine); Ordered 01/09/21 [facility] Th[facility]/Pulmonary Embolism Present on Admission: No
[2021-01-08] MEDS: VANCOMYCIN 1,500 MG in 0.9 % SODIUM CHLORIDE 500 ML IV SCH (12:04)
[2021-01-08 13:44] LABS: Basophils # (Auto) 0.04 K/mcL (0.00-0.20); Basophils % (Auto) 0.5 % (0.0-2.0); Eosinophils # (Auto) 0.31 K/mcL (0.00-0.70); Eosinophils % (Auto) 4.2 % (0.0-7.0); Hematocrit 37.6 % (36.0-48.0); Hemoglobin 12.2 g/dL (12.0-15.0); Lymphocytes # (Auto) 1.76 K/mcL (1.50-4.80); Lymphocytes % (Auto) 23.8 % (15.0-49.0); Mean Cell Volume 94.5 fL (80.0-100.0); Mean Corpuscular HGB Conc 32.4 g/dL (31.0-36.0); Mean Platelet Volume 9.6 fL (7.4-10.4); Monocytes # (Auto) 0.71 K/mcL (0.10-0.90); Monocytes % (Auto) 9.6 % (1.0-12.0); Neutrophils % (Auto) 61.9 % (38.0-78.0); Platelet Count 237 K/mcL (140-440); RBC 3.98 M/mcL (4.00-5.20); Red Cell Distribution Width 13.2 % (11.5-14.5); WBC 7.4 K/mcL (4.5-11.0)
[2021-01-08] MEDS: ATORVASTATIN 40 MG TABLET PO SCH (22:16)
[2021-01-09] MEDS: IPRATROPIUM/ALBUTEROL 3 ML AMPUL.NEB NEB SCH ×3 (02:14→13:28)
[2021-01-09] MEDS: 0.9 % SODIUM CHLORIDE 10 ML SYRINGE IV SCH (06:27)
[2021-01-09 07:21] LABS: Blood Urea Nitrogen 23 mg/dL (8-23); Carbon Dioxide 27 mmol/L (22-30); Chloride 99 mmol/L (96-108); Glomerular Filtration Rate 52; Glucose 138 mg/dL (70-105)
[2021-01-09] MEDS: cefTRIAXone 2 GM in DEXTROSE 5% IN WATER 50 ML IV SCH (08:02)
[2021-01-09] MEDS: LOSARTAN 25 MG TABLET PO SCH (08:03)
[2021-01-09] MEDS: OXYBUTYNIN CHLORIDE 5 MG TABLET PO SCH (08:03)
[2021-01-09] MEDS: ENOXAPARIN 40 MG/0.4 ML SYRINGE SQ SCH (08:03)
[2021-01-09] MEDS: PREGABALIN 150 MG CAPSULE PO SCH (08:03)
[2021-01-09] MEDS: glipiZIDE 5 MG TABLET PO SCH (08:03)
[2021-01-09] MEDS: FUROSEMIDE 20 MG TABLET PO SCH (08:03)
[2021-01-09] MEDS: FAMOTIDINE 20 MG TABLET PO SCH (08:03)
[2021-01-09] MEDS: DOCUSATE SODIUM 100 MG CAPSULE PO SCH (08:03)
[2021-01-09] MEDS: SERTRALINE 50 MG TABLET PO SCH (08:03)
[2021-01-09] MEDS: LEVOTHYROXINE 50 MCG TABLET PO SCH (08:03)
[2021-01-09] MEDS: Linagliptin [Tradjenta] 5 MG Tablet PO SCH (08:04)
[2021-01-09] MEDS: MUPIROCIN OINT 2% 22GM TOPICAL SCH (08:04)
[2021-01-09] MEDS: INSULIN LISPRO 1 UNIT/0.01 ML UNIT SQ SCH ×2 (08:04→11:43)
[2021-01-09] MEDS: VANCOMYCIN 1,500 MG in 0.9 % SODIUM CHLORIDE 500 ML IV SCH (08:33)
[2021-01-12 15:26] LABS: M. Pneumoniae IGG < or = 0.90; M. Pneumoniae IGM 69 U/mL
== END 2021-01-09 15:25 | disposition home health service (06) | DRG 193 ==
LOC: ED 23:47 → MEDSUR 01-07 04:57
PROVIDERS: ADMIT Internal Medicine; ATTEND Internal Medicine